=== PATIENT | male | born 1980 | race Hispanic/Latino ===

== ENCOUNTER 2023-06-17 18:14 | Emergency (ER) | payer OTHER ==
[~2023-06-17] VITALS: Ht 165.1 cm; Wt 83.9 kg
[2023-06-17] MEDS ORDERED: IBUPROFEN 600 MG TAB PO STA (18:22)
[2023-06-17] MEDS ORDERED: ACETAMINOPHEN 325 MG TAB PO ONE (18:30)
[2023-06-17] MEDS ORDERED: IBUPROFEN 400 MG TAB ONE (18:38)
[2023-06-17 19:15] VITALS: O2SAT 98
[2023-06-17] MEDS ORDERED: TAMIFLU75 MG PO (19:18)
== END 2023-06-17 19:31 | disposition home or self-care (01) ==
LOC: FSED 18:18
DX: R50.9 Fever, unspecified (principal); J10.1 Influenza due to other identified influenza virus with other respiratory manifestations; B34.9 Viral infection, unspecified; R05.9 Cough, unspecified; F10.20 Alcohol dependence, uncomplicated; E78.5 Hyperlipidemia, unspecified; F17.210 Nicotine dependence, cigarettes, uncomplicated
CPT/HCPCS: 99283